=== PATIENT | female | born 1975 | race Caucasian/White ===

== ENCOUNTER → 2021-05-04 03:51 | Outpatient (CLI) | payer OTHER, SELFPAY ==
[2021-05-04 18:14] LABS: SARS-CoV-2 RNA PCR Negative
== END ==
PROVIDERS: PCP Family Medicine; Visit Provider Family Medicine
DX: R68.89 Other general symptoms and signs (principal); Z20.822 Contact with and (suspected) exposure to COVID-19
CPT/HCPCS: C9803; U0003; U0005

== ENCOUNTER 2022-05-26 09:36 | Emergency (ER) | payer OTHER, SELFPAY ==
--- NOTE | ~2022-05-26 | XR_ITS ---
EXAMINATION: XR chest 2V 05/26/2022 10:24 INDICATION: Cough. Covid. PROCEDURE: PA and lateral views of the chest COMPARISON: 10/28/2018 FINDINGS: The lungs are clear. The cardiomediastinal silhouette is within normal limits. There are no pleural effusions. There is no pneumothorax suspected. IMPRESSION: 1: NO ACUTE CARDIOPULMONARY DISEASE. Reviewed, dictated and finalized at location A.
[2022-05-26 09:41] VITALS: BP 148/84; PULSE 96; RESP 14; TEMP 36.6; O2SAT 99
--- NOTE | 2022-05-26 11:29 | ED.URI ---
HPI - URI/Sore Throat General Chief Complaint: Upper Respiratory Infection Stated Complaint: UPPER RESP CONGESTION Time Seen by Provider: 05/26/22 10:54 History of Present Illness HPI Narrative: Patient is a 46-year-old female here for evaluation of upper respiratory infectious type symptoms for the past 6 weeks after being diagnosed with COVID. Patient reports cough, sinus congestion, and intermittent issues with SOB. No fevers, chills, chest pain, leg swelling, nausea, vomiting, sore throat. She has attempted OTC medications without significant relief of her symptoms. She is previously healthy. Related Data Home Medications Medication Instructions Recorded Confirmed acyclovir 400 mg tablet 400 mg PO DAILY 12/04/20 01/17/22 escitalopram oxalate 10 mg tablet 10 mg PO DAILY 12/04/20 01/17/22 meloxicam 15 mg tablet 15 mg PO DAILY 12/04/20 01/17/22 Allergies Allergy/AdvReac Type Severity Reaction Status Date / Time Penicillins Allergy Unknown Hives Verified 05/26/22 11:41 Review of Systems Review of Systems: Gen: Denies fevers or chills Eyes: Denies eye pain or visual change ENT: Denies congestion Respiratory: reports cough and SOB CV: Denies chest pain or palpitations GI: Denies abdominal pain nausea, emesis or diarrhea : denies burning, urgency, frequency or hematuria Musculoskeletal: Denies back pain or muscle pain Neuro: Denies numbness, tingling, weakness or focal weakness Skin: Denies rash Except as documented, all other systems reviewed and negative PMFSH Past Medical History Medical History Encounter for wellness examination Social History Social History (Updated 01/17/22 @ 12:57 by Herminia Washburn) Smoking status: Current every day smoker Tobacco type: e-cigarettes/vaping Second hand tobacco smoke exposure: No Alcohol intake: current Substance use: never Substance use type: does not use Gender identity (if verbalized by the patient): Female Sexual Orientation (if Verbalized by the Patient): Straight or Heterosexual Exam Narrative: APPEARANCE: Well appearing, no pain in distress, well-nourished. Head: Normocephalic and atraumatic. EYES: PERRLA/EOMI, conjunctivae clear NOSE: No nasal drainage EARS: External ear normal in appearance THROAT: Oropharynx is clear. Mucous membranes are moist. NECK: Supple. No adenopathy, no masses. RESPIRATORY: Airway patent, respirations nonlabored. Clear to auscultation bilaterally, no rales, rhonchi, wheezing. CARDIOVASCULAR: Regular rate and rhythm without murmurs, rubs, or gallops. ABDOMINAL: Normoactive bowel sounds. Soft, nontender, nondistended. No rebound tenderness or guarding. MUSCULOSKELETAL: Extremities are warm and well-perfused. Moves all extremities well. No edema. NEURO: Normal speech. No focal neurologic deficits. SKIN: Skin is warm and dry. No rashes. PSYCHIATRIC: Normal affect/mood. Course Vital Signs Vital signs: Vital Signs Temperature 97.8 F 05/26/22 09:41 Pulse Rate 96 05/26/22 09:41 Respiratory Rate 14 05/26/22 09:41 Blood Pressure 148/84 H 05/26/22 09:41 Pulse Oximetry 99 05/26/22 09:41 Oxygen Delivery Room Air 05/26/22 09:41 Temperature 97.8 F 05/26/22 09:41 Pulse Rate 72 05/26/22 11:38 Respiratory Rate 16 05/26/22 11:38 Blood Pressure 128/88 05/26/22 11:38 Pulse Oximetry 97 05/26/22 11:38 Oxygen Delivery Room Air 05/26/22 09:41 MDM - URI/Sore Throat MDM Narrative Medical decision making narrative: 46-year-old female here for evaluation of upper respiratory symptoms for the past 6 weeks after being diagnosed with COVID. Here, she is non-toxic appearing with normal vital signs. Her heart and lungs are clear to auscultation. CXR is clear. Likely long-covid or sequelae of COVID. She is perc negative and wells low risk; she has no tachycardia or CP to suggest PE thus dimer was not obtained. Will prescribe a few d
[2022-05-26 11:38] VITALS: BP 128/88; PULSE 72; RESP 16; O2SAT 97
== END 2022-05-26 11:42 | disposition home or self-care (01) ==
PROVIDERS: Emergency Provider Emergency Medicine; PCP Family Medicine
DX: J06.9 Acute upper respiratory infection, unspecified (principal); Z86.16 Personal history of COVID-19; F17.290 Nicotine dependence, other tobacco product, uncomplicated
CPT/HCPCS: 71046; 99283

== ENCOUNTER 2023-03-12 12:36 | Outpatient (CLI) | payer OTHER, SELFPAY ==
--- NOTE | ~2023-03-12 | US_ITS ---
EXAMINATION: US thyroid DATE: 03/12/2023 13:21 INDICATION: Nontoxic single thyroid nodule TECHNIQUE: Multiple ultrasound images of the thyroid were obtained. COMPARISON: None. FINDINGS: The right thyroid lobe measures 4.6 x 1.9 x 1.8 cm. The left thyroid lobe measures 3.7 x 1.2 x 0.7 c m. No discrete nodules identified. There is normal echotexture, echogenicity and vascular flow throu ghout the thyroid gland. IMPRESSION: 1. Mild asymmetry to the thyroid lobes, right larger than left. Otherwise normal study with no thyroi d nodules. Reviewed, dictated and finalized at location A. IMPRESSION: 1. Mild asymmetry to the thyroid lobes, right larger than left. Otherwise hussain l study with no thyroid nodules.
== END 2023-03-12 12:37 | disposition home or self-care (01) ==
PROVIDERS: PCP Family Medicine; Visit Provider Physician Assistant
DX: E04.1 Nontoxic single thyroid nodule (principal)
CPT/HCPCS: 76536

== ENCOUNTER 2023-07-21 06:11 | Day surgery (SDC) | payer OTHER, SELFPAY ==
[2023-04-30 08:42] VITALS: BMI 33.3
[2023-07-02 10:40] VITALS: BMI 31.1
--- NOTE | 2023-07-02 11:04 | PC.NURSE ---
PT STATES SHE IS LEAVING FOR [facility] ON FridayJUL 05 FOR A WEEK.
[2023-07-21 07:32] VITALS: BP 131/85; PULSE 76; RESP 16; TEMP 36.8; O2SAT 97
[2023-07-21] MEDS: LACTATED RINGERS 1,000 ML 150 ML IV CONT (07:34)
--- NOTE | 2023-07-21 07:37 | WPDANESEPPF ---
Anes - Initial Pre Proc Eval Procedure: Operation Date: 07/21/23 08:30 Proposed Procedures p Colonoscopy - Alber Murray MD Date/Time: 07/21/23 07:37 Surgeon: Alber Murray MD Pre Op Diagnosis: Family History of Colon Cancer Patient Data Age: 48 Gender: F Height: 1.73 m Weight: 92.3 kg Last Vital Signs Temp 36.8 C 07/21/23 07:32 Pulse 76 07/21/23 07:32 Resp 16 07/21/23 07:32 BP 131/85 07/21/23 07:32 Pulse Ox 97 07/21/23 07:32 O2 Del Method Room Air 07/21/23 07:32 Allergies Allergy/AdvReac Type Severity Reaction Status Date / Time Penicillins Allergy Unknown Hives Verified 07/21/23 07:23 Home Medications Medication Instructions Recorded Confirmed Type acyclovir 400 mg tablet 400 mg PO DAILY 12/04/20 07/21/23 History sodium,potassium,mag sulfates 17.5 See Rx Instructions PO .COMPLEX 04/30/23 Rx gram-3.13 gram-1.6 gram oral soln #354 mL (Suprep Bowel Prep Kit) multivit with minerals-iron 18 1 tablet PO DAILY 07/02/23 07/21/23 History mg-folic ac 400 mcg-vit K 25 mcg tablet (Adults Multivitamin) progesterone micronized 100 mg 100 mg PO HS 07/02/23 07/21/23 History capsule semaglutide (weight loss) 0.5 0.5 mg subcut WEEKLY 07/21/23 07/21/23 History mg/0.5 mL subcutaneous pen injector Patient hx anesthesia problems: none Family hx anesthesia problems: none Results Review: All pre-operative results and documents have been reviewed as part of the pre-operative evaluation. [facility] Past Medical History Medical History Abnormal inflammatory bowel disease panel ANASTASIYA positive Encounter for wellness examination Family hx of colon cancer IBS (irritable bowel syndrome) Inflammatory arthritis Obesity (BMI 30.0-34.9) Surgical History Surgical History (Updated 07/21/23 @ 07:37 by Shlomo Acuña MD) H/O colonoscopy Social History Social History Smoking status: Current every day smoker Tobacco type: e-cigarettes/vaping Second hand tobacco smoke exposure: No Additional smoking assessment comments: PT VAGUE REGARDING SMOKING STATUS. PRIOR USE OF CIGARETTES, NOW VAPES. Alcohol intake: current Drinks per week: 3 Substance use: never Substance use type: does not use Living arrangements: with family Occupation/Education: occupation Gender identity (if verbalized by the patient): Female Sexual Orientation (if Verbalized by the Patient): Straight or Heterosexual Spiritual care concerns: No Anes - Eval Final PreProcedure Day of Procedure 07/21/23 07:37 Patient weight: obese Heart: regular rate and rhythm Lungs: clear to auscultation Airway: Mallampati scale class II Neurological: alert and oriented Last oral intake: >/= 8 hours ASA classification: II Emergent: no Anesthetic plan: proceed Anesthesia type and monitoring: general GIVS and standard monitoring Results Review: All pre-operative results and documents have been reviewed as part of the pre-operative evaluation. Informed Consent: The patient's anesthetic plan and its attendant risks and benefits were discussed with the patient/family/POA. Questions were solicited and answers provided to the satisfaction of the patient/family/POA.
--- NOTE | 2023-07-21 08:02 | WPDHPUPDATE1 ---
History and Physical Update Update Date/Time: 07/21/23 08:02 History and Physical has been reviewed, including an updated exam of the patient. There are NO changes in the patient's condition. Risks, benefits, and alternatives have been discussed and questions answered. Patient agrees to proceed with procedure.
--- NOTE | 2023-07-21 08:03 | PM.HPGS ---
History of Present Illness History of Present Illness Consent: Risks, benefits, and alternatives have been discussed and questions answered. Patient agrees to proceed with procedure. Chief complaint: Family History of Colon Cancer Narrative: Rachel Saunders is a 48 year old female Presents for screening colonoscopy. Patient's current weight appetite and bowel movements are normal. She denies abdominal pain. She has had no bleeding. Family history is significant both father and grandfather have had colon cancer. Previous colonoscopy in 2018 was unremarkable. Patient presents today for neoplasia screening: Scan be. Review of Systems Review of Systems: Review of systems noncontributory [facility] Past Medical History Medical History Abnormal inflammatory bowel disease panel ANASTASIYA positive Encounter for wellness examination Family hx of colon cancer IBS (irritable bowel syndrome) Inflammatory arthritis Obesity (BMI 30.0-34.9) Surgical History Surgical History (Updated 07/21/23 @ 07:37 by Shlomo Acuña MD) H/O colonoscopy Social History Social History Smoking status: Current every day smoker Tobacco type: e-cigarettes/vaping Second hand tobacco smoke exposure: No Additional smoking assessment comments: PT VAGUE REGARDING SMOKING STATUS. PRIOR USE OF CIGARETTES, NOW VAPES. Alcohol intake: current Drinks per week: 3 Substance use: never Substance use type: does not use Living arrangements: with family Occupation/Education: occupation Gender identity (if verbalized by the patient): Female Sexual Orientation (if Verbalized by the Patient): Straight or Heterosexual Spiritual care concerns: No Meds Home Medications and Allergies Home Medications Medication Instructions Recorded Confirmed Type acyclovir 400 mg tablet 400 mg PO DAILY 12/04/20 07/21/23 History sodium,potassium,mag sulfates 17.5 See Rx Instructions PO .COMPLEX 04/30/23 Rx gram-3.13 gram-1.6 gram oral soln #354 mL (Suprep Bowel Prep Kit) multivit with minerals-iron 18 1 tablet PO DAILY 07/02/23 07/21/23 History mg-folic ac 400 mcg-vit K 25 mcg tablet (Adults Multivitamin) progesterone micronized 100 mg 100 mg PO HS 07/02/23 07/21/23 History capsule semaglutide (weight loss) 0.5 0.5 mg subcut WEEKLY 07/21/23 07/21/23 History mg/0.5 mL subcutaneous pen injector Allergies Allergy/AdvReac Type Severity Reaction Status Date / Time Penicillins Allergy Unknown Hives Verified 07/21/23 07:23 Vital Signs Vital Signs - 24 hr 07/21/23 07:32 Temperature 98.3 F Pulse Rate 76 Respiratory Rate 16 Blood Pressure 131/85 Pulse Oximetry 97 Oxygen Delivery Room Air Exam Narrative: physical exam reveals patient to be alert. Vital signs stable. HEENT exam is unremarkable. Patient is anicteric. Lungs are clear to auscultation and percussion. Heart is without murmur or extra sounds. Abdominal exam bowel sounds are present soft nontender with no hepatosplenomegaly. Digital external rectal exam normal. Assessment and Plan Assessment and plan (1) Family hx of colon cancer: Code(s): Z80.0 - Family history of malignant neoplasm of digestive organs Status: Acute Assessment and Plan: Colonoscopy to be performed today. family history of colon cancer in father and grandfather. Follow-up at 5 year intervals is advised
[2023-07-21 08:46] VITALS: BP 103/70; PULSE 76; RESP 16; O2SAT 100
[2023-07-21 08:56] VITALS: BP 94/76; PULSE 66; RESP 18; O2SAT 100
[2023-07-21 09:06] VITALS: BP 108/80; PULSE 65; RESP 18; O2SAT 100
--- NOTE | 2023-07-21 09:06 | WPDANESPN ---
Anes - Prog Note Post-Op Date/Time: 07/21/23 09:06 Cardiovascular status: normal Respiratory status: normal Airway patency: baseline Mental status: baseline Post-Op hydration status: normal Vital Signs: Last Vital Signs Temp 36.8 C 07/21/23 07:32 Pulse 66 07/21/23 08:56 Resp 18 07/21/23 08:56 BP 94/76 L 07/21/23 08:56 Pulse Ox 100 07/21/23 08:56 O2 Del Method Room Air 07/21/23 08:56 Pain Score (VAS): 0/10 I/O: Intake & Output 07/20/23 07/21/23 07/21/23 23:59 07:59 15:59 Intake Total 400 Balance 400 Patient Feedback: Patient satisfied with anesthetic care.
== END 2023-07-21 09:20 | disposition home or self-care (01) ==
PROVIDERS: PCP Family Medicine; Visit Provider Internal Medicine Gastroenterology
PROC: 0DJD8ZZ Inspection of Lower Intestinal Tract, Via Natural or Artificial Opening Endoscopic (ICD-10-PCS; CPT 45378; principal; 2023-07-21 08:30)
DX: Z80.0 Family history of malignant neoplasm of digestive organs (principal); K64.8 Other hemorrhoids
CPT/HCPCS: 45378